=== PATIENT | female | born 1990 | race Caucasian/White ===

== ENCOUNTER 2022-09-24 07:26 | Day surgery (SDC) | payer BC ==
[2022-09-20 10:30] LABS: BASOPHILS % (AUTO) 0.5 % (0-1); EOSINOPHILS # (AUTO) 0.1 X10'3 (0-0.9); EOSINOPHILS % (AUTO) 1.3 % (0-6); LYMPHOCYTES # (AUTO) 1.2 X10'3 (1.1-4.8); LYMPHOCYTES % (AUTO) 24.2 % (21-51); MEAN CORPUSCULAR HEMOGLOBIN 31.5 PG (27.0-31.0); MEAN CORPUSCULAR HGB CONC 34.2 g/dL (33.0-36.5); MEAN PLATELET VOLUME 7.8 FL (7.4-10.4); MONOCYTES # (AUTO) 0.4 X10'3 (0-0.9); MONOCYTES % (AUTO) 7.9 % (2-12); NEUTROPHILS # (AUTO) 3.3 X10'3 (1.8-7.7); NEUTROPHILS % (AUTO) 66.1 % (42-75); PRE OP HEMATOCRIT 38.3 % (35.0-45.0); PRE OP HEMOGLOBIN 13.1 g/dL (12.0-16.0); PRE OP PLATELET COUNT 245 X10'3 (140-440); RED BLOOD COUNT 4.16 X10'6 (4.20-5.60)
[2022-09-20 10:42] LABS: ALBUMIN 3.3 G/DL (3.4-5.0); ALBUMIN/GLOBULIN RATIO 0.9 (1.1-1.5); ALKALINE PHOSPHATASE 47 IU/L (46-116); BLOOD UREA NITROGEN 9 MG/DL (7-18); BUN/CREATININE RATIO 11.4 (10.0-20.0); CALCIUM 8.2 MG/DL (8.5-10.1); CHLORIDE 106 MMOL/L (99-107); CREATININE 0.79 MG/DL (0.40-0.90); PRE OP ALT 14 U/L (30-65); PRE OP ANION GAP 10 (8-16); PRE OP AST 14 U/L (10-37); PRE OP BILIRUB, TOTAL 0.3 MG/DL (0.0-1.0); PRE OP GLUCOSE 95 MG/DL (70-104); PRE OP POTASSIUM 3.4 MMOL/L (3.4-5.1); PRE OP SODIUM 140 MMOL/L (135-145); TOTAL CARBON DIOXIDE 23.6 MMOL/L (24-32); TOTAL PROTEIN 7.1 G/DL (6.4-8.2); eGFR 83 ML/MIN
[2022-09-20 11:06] LABS: HCG SERUM QL NEGATIVE
[~2022-09-24] VITALS: Ht 175.3 cm; Wt 72.5 kg
[~2022-09-24 07:26] MED LIST: NORG1TAB78 PO; cefazolin 2gm/D5W 100mL 100 ML IV ONE; famotidine 20mg tablet PO ONE; ringers solution, lacted 1,000 ML IV SCH
[2022-09-24 07:45] VITALS: BP 109/73
[2022-09-24] MEDS ORDERED: hydrALAZINE 20mg/ml inj. IV PRN (08:25)
[2022-09-24] MEDS ORDERED: proCHLORperazine 10 MG/2 ml inj IV PRN (08:25)
[2022-09-24] MEDS ORDERED: labetalol 20mg/4ml (5mg/ml) syringe IV PRN (08:25)
[2022-09-24] MEDS ORDERED: ringers solution, lacted 1,000 ML IV SCH (08:25)
[2022-09-24] MEDS ORDERED: meperidine/PF 25mg/ml syringe IV PRN ×2 (08:25)
[2022-09-24] MEDS ORDERED: ondansetron/PF 4mg/2ml inj IV PRN (08:25)
[2022-09-24] MEDS ORDERED: acetaminophen 1,000mg/100ml IV 100 ML IV PRN (08:25)
[2022-09-24] MEDS ORDERED: morphine 2 MG/ML inj. syringe IV PRN (08:25)
[2022-09-24] MEDS ORDERED: ketorolac trometh. 30mg/ml inj. IV ONE (08:25)
[2022-09-24] MEDS ORDERED: morphine 4 MG/ML inj SYRINge IV PRN (08:25)
[2022-09-24] MEDS ORDERED: BUPIVAcaine HCl 0.25%/EPInephrine 1:200,000 inj. 10 ML VIAL ONE (10:03)
[2022-09-24] MEDS ORDERED: fentaNYL/PF 50MCG/1 ML 2ML syringe ONE (10:36)
[2022-09-24] MEDS ORDERED: midazolam 1 mg/ML 2ml injection ONE (10:48)
[2022-09-24] MEDS ORDERED: dexamethasone sod phosphate 4mg/ml inj. ONE (10:48)
[2022-09-24] MEDS ORDERED: LIDOcaine 2% (20mg/ml) 5ml vial ONE (10:48)
[2022-09-24] MEDS ORDERED: rocuronium 10mg/ml inj IV ONE (10:48)
[2022-09-24] MEDS ORDERED: ondansetron/PF 4mg/2ml inj ONE (10:48)
[2022-09-24] MEDS ORDERED: propofol inj 20 ML IV ONE (10:48)
[2022-09-24] MEDS ORDERED: neostigmine methylsulfate 1 MG/ML 10ml vial ONE (11:21)
[2022-09-24] MEDS ORDERED: glycopyrrolate 0.2mg/ml inj ONE (11:21)
[2022-09-24] MEDS ORDERED: morphine 4 MG/ML inj SYRINge ONE (11:25)
[2022-09-24 11:30] VITALS: BP 112/70
--- NOTE | 2022-09-24 11:30 | NUR ---
Received from OR via [facility], accompanied by Anesthesiologist DR. NEVAREZ and report given by Anesthesiolgist. SB, VSS. SEVERE PAIN. TORADOL GIVEN. 10L MASK O2 SATURATIONS 100%.
[2022-09-24] MEDS: meperidine/PF 25mg/ml syringe IV PRN ×2 (11:38→11:45)
[2022-09-24 11:40] VITALS: BP 116/71
[2022-09-24 11:50] VITALS: BP 96/57
[2022-09-24 12:00] VITALS: BP 97/51
--- NOTE | 2022-09-24 12:00 | NUR ---
PATIENT MEETS DISCHARGE CRITERIA. DISCHARGED WITH ALL BELONGINGS INTO THE CARE OF HER , CHRIS. DISCHARGE INSTRUCTIONS UNDERSTOOD.
== END 2022-09-24 12:00 | disposition home or self-care (01) ==
LOC: PAS 07:26
PROVIDERS: ATTEND Obstetrics & Gynecology
DX: Z30.2 Encounter for sterilization (principal); N94.6 Dysmenorrhea, unspecified; N92.6 Irregular menstruation, unspecified; N81.4 Uterovaginal prolapse, unspecified; Z87.442 Personal history of urinary calculi; Z98.890 Other specified postprocedural states
CPT/HCPCS: 36415; 58563; 58670; 80053; 82948; 84703; 85025; J0690; J1100; J1885; J2175; J2250; J2270; J2405; J2704; J2710; J3010; J3490; J7030; J7120; Z7506; Z7508; Z7512; A4355; A4618; A4649; A6258; A7000